=== PATIENT | male | born 1970 | race African-American/Black ===

== ENCOUNTER 2017-09-14 11:58 | Emergency (ER) | payer SELFPAY | END 2017-09-14 12:20 | disposition home or self-care (01) | LOC: NAV ERS 11:58 | DX: K08.89 Other specified disorders of teeth and supporting structures (principal); I10 Essential (primary) hypertension; J45.909 Unspecified asthma, uncomplicated; F17.210 Nicotine dependence, cigarettes, uncomplicated | CPT/HCPCS: 99282 ==

== ENCOUNTER 2018-06-28 09:01 | Emergency (ER) | payer SELFPAY | END 2018-06-28 09:30 | disposition home or self-care (01) | LOC: NAV ERS 09:01 | DX: K08.89 Other specified disorders of teeth and supporting structures (principal); J45.909 Unspecified asthma, uncomplicated; F17.210 Nicotine dependence, cigarettes, uncomplicated | CPT/HCPCS: 99282 ==

== ENCOUNTER 2020-03-23 12:15 | Emergency (ER) | payer SELFPAY | END 2020-03-23 19:22 | disposition home or self-care (01) | LOC: NAV ERS 12:15 | DX: M54.5 Low back pain (principal); F17.210 Nicotine dependence, cigarettes, uncomplicated | CPT/HCPCS: 99283 ==